=== PATIENT | male | born 1990 | race Caucasian/White ===

== ENCOUNTER 2021-10-01 13:04 | Emergency (ER) | payer MEDICAID ==
[~2021-10-01] VITALS: Ht 177.8 cm; Wt 90.9 kg
[2021-10-01] MEDS ORDERED: IBUPROFEN 600 MG TABLET PO ONE (14:00)
[2021-10-01 15:38] VITALS: BP 125/72
== END 2021-10-01 16:46 | disposition home or self-care (01) ==
LOC: EMS 13:04
DX: S92.001D Unspecified fracture of right calcaneus, subsequent encounter for fracture with routine healing (principal); F17.210 Nicotine dependence, cigarettes, uncomplicated; W17.89XD Other fall from one level to another, subsequent encounter
CPT/HCPCS: 99283